=== PATIENT | female | born 1975 | race Caucasian/White ===

== ENCOUNTER 2018-02-05 10:37 | Day surgery (SDC) | payer BC, OTHER ==
[2018-02-05 11:01] VITALS: BMI 34.4
[2018-02-05 11:42] LABS: BASO % 1.4 % (0-2.0); EOS % 1.3 % (0-4.5); HEMATOCRIT 41.7 % (32.4-45.2); HEMOGLOBIN 13.6 GM/dl (10.7-15.3); LYMPH % 30.1 % (8-40); MCH 28.6 pg (25.7-33.7); MCHC 32.7 g/dl (32.0-36.0); MEAN CELL VOLUME 87.3 fl (80-96); MEAN PLT VOLUME 8.5 fl (7.5-11.1); MONO % 3.9 % (3.8-10.2); NEUT % 63.3 % (42.8-82.8); PLATELET COUNT 325 K/MM3 (134-434); RBC 4.77 M/mm3 (3.60-5.2); RDW 12.9 % (11.6-15.6); WHITE BLOOD COUNT 7.7 K/mm3 (4.0-10.8)
[2018-02-05] MEDS ORDERED: LACTATED RINGERS SOLUTION 1,000 ML/1,000 ML INFUS.BAG IV SCH (11:45)
[2018-02-05 11:46] LABS: INR 1.08 (0.82-1.09); PROTHROMBIN TIME (PATIENT) 12.1 SEC (10.2-13.0)
[2018-02-05 11:50] LABS: ALBUMIN 3.9 g/dl (3.5-5.0); ALK PHOS 64 U/L (32-92); BILIRUBIN,TOTAL 0.7 mg/dl (0.2-1.0); BLOOD UREA NITROGEN 13 mg/dl (7-18); CREATININE 0.7 mg/dl (0.6-1.3); SGOT/AST 30 U/L (10-42); SGPT/ALT 38 U/L (10-40); TOT PROT 6.9 g/dl (6.4-8.3)
[2018-02-05 11:57] LABS: ANION GAP 10 MMOL/L (8-16); CALCIUM 9.2 mg/dl (8.4-10.2); CHLORIDE 106 mmol/L (98-107); CO2 21 mmol/L (22-28); GLUCOSE,RANDOM 115 mg/dl (74-106); POTASSIUM 4.1 mmol/L (3.5-5.1); SODIUM 137 mmol/L (136-145)
--- NOTE | 2018-02-05 11:57 | PDOC ---
Attending Attestation - Resident Resident Name: Davey Lovell - ED Attending Attestation I have performed the following: I have examined & evaluated the patient, The case was reviewed & discussed with the resident, I agree w/resident's findings & plan, Exceptions are as noted - HPI HPI: 02/05/18 11:51 42 F with h/o lapband surgery 2 years ago presenting with 1 month of epigastric pain and vomiting. Pt reports pain immediately after eating, often accompanied by vomiting. Denies any abdominal distention. Denies constipation. Denies F/C. Pt denies lower abdominal pain. Spoke with Dr. Alexander's staff, who recommended she come to ER. - Physicial Exam PE: 02/05/18 11:57 GENERAL: Awake, alert, and fully oriented, in no acute distress. HEAD: No signs of trauma EYES: PERRLA, EOMI, sclera anicteric, conjunctiva clear ENT: Auricles normal inspection, hearing grossly normal, nares patent, oropharynx clear without exudates. Moist mucosa NECK: Nontender, no stepoffs, Normal ROM, supple, no lymphadenopathy, JVD, or masses LUNGS: Breath sounds equal, clear to auscultation bilaterally. No wheezes, and no crackles HEART: Regular rate and rhythm, normal S1 and S2, no murmurs, rubs or gallops ABDOMEN: + epigastric TTP, no distention, normoactive bowel sounds. No guarding , no rebound. No masses EXTREMITIES: Normal range of motion, no edema. No clubbing or cyanosis. No cords, erythema, or tenderness NEUROLOGICAL: Cranial nerves II through XII intact. 5/5 strength and sensation in all extremities, Normal speech, normal gait, normal cerebellar function SKIN: Warm, Dry, normal turgor, no rashes or lesions noted. - Medical Decision Making 02/05/18 11:57 42 F with epigastric pain + vomiting after eating. Likely related to lap-band. - Labs - Surgery consult - Dr. Alexander Pt admitted to Dr. Alexander, for OR today.
--- NOTE | 2018-02-05 12:00 | PDOC ---
History of Present Illness - General Chief Complaint: Nausea/Vomiting Stated Complaint: LAP BAND PROBLEM NAUSEA VOMITING Time Seen by Provider: 02/05/18 10:40 History Source: Patient Exam Limitations: No Limitations - History of Present Illness Initial Comments: 02/05/18 11:42 The patient is a 42F s/p gastric band 2 years ago who presents to the ER with abdominal pain sent by Dr. Alexander, her bariatric surgeon. The patient states that she's had dull, intermittent epigastric pain for the past 1 month. The pain is much worse after foods. She states that her band has moved twice despite adjustments and she spoke to Dr. Alexander and will have it removed. She denies current abdominal pain, fever, chills, CP, SOB, nausea, vomiting, and diarrhea. LBM is yesterday. LMP 4 days ago. Past History - Past Medical History Allergies/Adverse Reactions: Allergies Allergy/AdvReac Type Severity Reaction Status Date / Time No Known Allergies Allergy Unverified 02/05/18 10:45 Home Medications: Ambulatory Orders Metformin HCl [Glucophage] 1,000 mg PO BID 02/05/18 COPD: No Dementia: Yes - Surgical History Gastric Stapling: Yes (LAB BAND) - Suicide/Smoking/Psychosocial Hx Smoking History: Current every day smoker Have you smoked in the past 12 months: Yes Number of Cigarettes Smoked Daily: 5 Information on smoking cessation initiated: Yes 'Breaking Loose' booklet given: 02/05/18 Hx Alcohol Use: Yes (SOCIAL) Drug/Substance Use Hx: No Substance Use Type: Alcohol Review of Systems - Review of Systems Able to Perform ROS?: Yes Comments:: 02/05/18 12:00 GENERAL/CONSTITUTIONAL: No fever or chills. No weakness. HEAD, EYES, EARS, NOSE AND THROAT: No change in vision. No ear pain or discharge. No sore throat. CARDIOVASCULAR: No chest pain, palpitations, or lightheadedness. RESPIRATORY: No cough, wheezing, shortness of breath, or hemoptysis. GASTROINTESTINAL: Positive for resolved nausea, vomiting, and abdominal pain - none currently present. GENITOURINARY: No dysuria, frequency, hematuria, or change in urination. MUSCULOSKELETAL: No joint or muscle swelling or pain. No neck or back pain. SKIN: No rash or lesions. NEUROLOGIC: No headache, numbness, tingling, focal weakness, loss of consciousness, or change in strength/sensation. ENDOCRINE: No increased thirst. No abnormal weight change. HEMATOLOGIC/LYMPHATIC: No anemia, easy bleeding, or history of blood clots. ALLERGIC/IMMUNOLOGIC: No hives or skin allergy. Is the patient limited Kiswahili proficient: No *Physical Exam - Vital Signs Last Vital Signs Temp Pulse Resp BP Pulse Ox 98.7 F 73 16 122/96 100 02/05/18 10:40 02/05/18 10:40 02/05/18 10:40 02/05/18 10:40 02/05/18 10:40 - Physical Exam Comments: 02/05/18 12:04 GENERAL: Well developed, well nourished. Awake and alert. No acute distress. HEENT: Normocephalic, atraumatic. Hearing grossly normal. Moist mucous membranes. PERRLA, EOMI. No conjunctival pallor. Sclera are non-icteric. NECK: Supple. Full ROM. No JVD. CARDIOVASCULAR: Regular rate and rhythm. No murmurs, rubs, or gallops. Distal pulses are 2+ and symmetric. PULMONARY: No evidence of respiratory distress. Lungs clear to auscultation bilaterally. No wheezing, rales or rhonchi. ABDOMINAL: Soft. Non-tender. Non-distended. No rebound or guarding. GENITOURINARY: No CVA tenderness bilaterally. MUSCULOSKELETAL: Normal range of motion at all joints. No bony deformities or tenderness. EXTREMITIES: No cyanosis. No clubbing. No edema. No calf tenderness or swelling. SKIN: Warm and dry. Normal capillary refill. No rashes. No jaundice. NEUROLOGICAL: Alert, awake, appropriate. Cranial nerves 2-12 grossly intact. Normal speech. Gait is normal without ataxia. PSYCHIATRIC: Cooperative. Good eye contact. Appropriate mood and affect. ED Treatment Course - LABORATORY CBC & Chemistry Diagram: 02/05/18 11:15 02/05/18 11:15 Medical Decision Making - Medical Decision Making 02/05/18 12:04 The patient is a 42F with a PMH of gastric band who presents to the ER on her surgeon's recommendation for removal of the gastric band. The patient has no current complaints. Pending labs. I have d/w Dr. Alexander who would like the pt pre-opped with labs and EKG. He wants the CT cancelled. Will place orders. Pending call back to confirm admission vs transfer. *DC/Admit/Observation/Transfer Diagnosis at time of Disposition: Abdominal pain Qualifiers: Abdominal location: epigastric Qualified Code(s): R10.13 - Epigastric pain - Discharge Dispostion Condition at time of disposition: Guarded Decision to Admit order: Yes - Referrals - Patient Instructions - Post Discharge Activity
[2018-02-05 13:46] LABS: LIPASE 194 U/L (73-393)
[2018-02-05] MEDS ORDERED: fentaNYL CITRATE 250 MCG/5 ML VIAL ONE (14:02)
[2018-02-05] MEDS ORDERED: BUPIVACAINE HCL/PF 2.5 MG/ML - 30 ML VIAL IJ ONE (14:02)
[2018-02-05] MEDS ORDERED: ROCURONIUM BROMIDE 50 MG/5 ML VIAL ONE (14:02)
[2018-02-05] MEDS ORDERED: PROPOFOL 20 ML ONE ×2 (14:02)
[2018-02-05] MEDS ORDERED: MIDAZOLAM HCL 2 MG/2 ML SINGLE DOSE VIAL ONE (14:02)
[2018-02-05] MEDS ORDERED: PROMETHAZINE HCL 25 MG/1 ML VIAL IVPUSH PRN (14:57)
[2018-02-05] MEDS ORDERED: ONDANSETRON 4 MG/2 ML VIAL IVPUSH PRN ×2 (14:57→16:07)
[2018-02-05] MEDS ORDERED: oxyCODONE HCL 5 MG TABLET PO PRN ×4 (14:57→16:11)
[2018-02-05] MEDS ORDERED: BUPIVACAINE HCL/PF 0.25% (2.5MG/ML) 10 ML VIAL IJ ONE ×2 (15:04→15:40)
[2018-02-05] MEDS ORDERED: NEOSTIGMINE METHYLSULFATE 0.5 MG/ML - 10 ML MDV ONE (15:40)
--- NOTE | 2018-02-05 16:06 | OP ---
Operative Note - Note: Operative Date: 02/05/18 Pre-Operative Diagnosis: Epigastric Abdominal Pain. Vomiting. GE Reflux Disease. Mechanical Complication of Implantable Device Secondary to Gastric Band. AbdominalAdhesions. Fibrous Capsule around Stomach Operation: Laparoscopic Removal of Gastric Band plus subcutaneous port component. Laparoscopic Lysisi of Adhesions. Excision of fibrous capsule around stomach. Diagnostic Laparoscopy Findings: Fibrous capsule around upper stomach thick and constricting Post-Operative Diagnosis: Same as Pre-op (Abdominal Adhesions; Fibrous capsule around stomach) Surgeon: Danny Alexander Data Programmer: Zainab Mccullough Anesthesia: General Specimens Removed: Gastric Band plus subcutaneous port Estimated Blood Loss (mls): 30 Operative Report Dictated: Yes
[2018-02-05] MEDS ORDERED: TRIMETHOBENZAMIDE HCL 200MG/2ML INJ IM PRN (16:07)
--- NOTE | 2018-02-05 16:11 | SURG ---
Surgery Job Press Feeder Note Job Press Feeder: Zainab Mccullough PA-C Date of Service: 02/05/18 Diagnosis: Epigastric Abdominal Pain. Vomiting. GE Reflux Disease. Mechanical Complication of Implantable Device Secondary to Gastric Band. AbdominalAdhesions. Fibrous Capsule around Stomach Procedure: Laparoscopic Removal of Gastric Band plus subcutaneous port component. Laparoscopic Lysisi of Adhesions. Excision of fibrous capsule around stomach. Diagnostic Laparoscopy I was present for the entirety of the operative procedure. For further detail, please refer to operative report. Visit type - Case Type Case Type: ED Admission - Emergency Emergency Visit: Yes Care time: The patient presented to the Emergency Department on the above date and was hospitalized for further evaluation of their emergent condition. - New patient This patient is new to me today: Yes Date on this admission: 02/05/18
[2018-02-05] MEDS ORDERED: SODIUM CHLORIDE 1,000 ML IV SCH (16:45)
[2018-02-05] MEDS ORDERED: FAMOTIDINE 20 MG PREMIXED IVPB IVPB ONE (17:00)
[2018-02-05] MEDS ORDERED: FAMOTIDINE 20 MG/50 ML IVPB 20 MG/50 ML MG IVPB ONE (17:03)
[2018-02-05 17:38] VITALS: TEMP 97.8
[2018-02-05] MEDS ORDERED: oxyCODONE HCL 5 MG TABLET ONE (17:54)
[2018-02-05 18:16] VITALS: BP 130/80; PULSE 78
[2018-02-05] MEDS ORDERED: FAMOTIDINE 20 MG/50 ML IVPB 20 MG/50 ML MG IVPB SCH (22:00)
--- NOTE | 2018-02-06 09:52 | OP ---
DATE OF OPERATION: 02/05/2018 PREOPERATIVE DIAGNOSIS: 1. Epigastric pain. 2. Vomiting. 3. Gastroesophageal reflux disease. 4. Mechanical complication of implantable device secondary to gastric band. 5. Diabetes mellitus. POSTOPERATIVE DIAGNOSIS: 1. Epigastric abdominal pain. 2. Vomiting. 3. Gastroesophageal reflux disease. 4. Mechanical complication of implantable device secondary to gastric band. 5. Diabetes mellitus. 6. Abdominal adhesions. 7. Fibrous capsule around the stomach. PROCEDURE PERFORMED: 1. Laparoscopic removal of gastric band plus subcutaneous port component. 2. Laparoscopic lysis of adhesions. 3. Excision of fibrous capsule around the stomach. 4. Diagnostic laparoscopy. OPERATING SURGEON: Danny Alexander MD [employer] HE[employer] SAF[employer]Y INTERN: PAU Chery ANESTHESIA: General. EXPECTED BLOOD LOSS: 30 mL. OPERATIVE PROCEDURE: The patient was brought into the operating room, placed on the OR table in the supine position. All precautions were taken initially including padding for the back and the feet, and Venodyne boots were placed on both lower extremities. At that point, the abdomen was prepped and draped in the usual manner. A Veress needle was placed in the left upper quadrant, and a pneumoperitoneum was established. A No. 12 bladeless trocar was placed in the left upper quadrant. Through that trocar, a laparoscopic camera was placed. Under direct vision, a No. 15 bladeless trocar was placed in the right upper quadrant along with a No. 5 bladeless trocar in the right upper quadrant more laterally. This was followed by a No. bladeless trocar below the left costal margin. A Vinh Liver Retractor was then placed in the epigastrium to retract the left lobe of the liver. The patient was then placed in a 20-degree reverse Trendelenburg position by Anesthesia. The band tubing was noted in the left upper quadrant, and it was followed toward where the band was around the stomach. There were some adhesions between the omentum and the left lobe of the liver, and these were lysed with a combination of blunt dissection and also with electrocautery. There were also adhesions of the tubing to the liver, and these also were lysed in similar fashion. At this point, attention was directed to the band. With the anesthesiologist assistant surgeon retracting the band tubing towards the patients left side, the operating surgeon used electrocautery to dissect the fibrous capsule off the band on the lesser curvature. This continued laterally, until the entire fibrous capsule was removed, and the band on the lesser curvature was now in full view and easily mobilized. At this junction, the operating surgeon grasped the band tubing and pulled it towards the patients right side. The anesthesiologist assistant surgeon then retracted the stomach inferiorly. Electrocautery was now used to dissect the fibrous capsule off of the band on the greater curvature side, and this was done until the entire band was in full view. The band was then opened with 2 laparoscopic instruments, and the tubing was cut at the takeoff to the subcutaneous port. The band tubing was then removed from around the band, and the band was pulled from around the stomach and sent off the field in one specimen to Pathology. Attention was now directed to the fibrous capsule around the stomach. With the operating and anesthesiologist assistant surgeons lifting it up on both sides, the operating surgeon was able to gently dissect the fibrous capsule with the laparoscopic scissors off the stomach wall. This continued inferior up to superior direction until it completely split in half. Both pieces on the left and right side of the stomach wall were then peeled back so that the anterior stomach wall was now in full view and free of all fibrous capsule. At this juncture, attention was directed to No. 15 and 12 trocar sites. They were closed with endo-closure device to prevent internal hernia event bleeding. At this point, under direct vision, all trocars were removed and pneumoperitoneum was released. The right upper quadrant port site was extended laterally with the scalpel and dissected with continuous electrocautery to the port on the subcutaneous tissue on the right anterior rectus muscle. The port was then lifted up off the right anterior rectus muscle, sent off the field as specimen to Pathology. All Vicryl sutures in the right anterior rectus muscle were removed, and then, all trocar sites received 0.25% Marcaine. The right upper quadrant port site was first closed with 3-0 Vicryl in the subcutaneous tissue, and then, all the trocars were closed with 4-0 Biosyn in subcuticular fashion. Dressings were applied. The patient was then awoken from anesthesia and transferred out of the operating room to the recovery room in stable condition. Elinor [id number]
--- NOTE | 2018-02-07 22:26 | EKG ---
Test Reason : Blood Pressure : / mmHG Vent. Rate : 063 BPM Atrial Rate : 063 BPM P-R Int : 106 ms QRS Dur : 082 ms QT Int : 430 ms P-R-T Axes : 026 048 033 degrees QTc Int : 440 ms SINUS RHYTHM WITH SHORT NH OTHERWISE NORMAL ECG WHEN COMPARED WITH ECG OF 16-JUL-2015 10:12, T WAVE INVERSION NO LONGER EVIDENT IN ANTERIOR LEADS Confirmed by CASE EDWARD MD ([id number]) on 02/07/2018 10:25:32 PM Referred By: MD LITTLE Confirmed By:CASE EDWARD MD
--- NOTE | 2018-02-09 17:11 | PATH ---
Surgical Pathology Report Patient Name: PAO VASQEUZ Med. Rec. #: [id number] /Age/Gender: 1975 (Age: 42) / F Account: [id number] Location: [facility] AMBULATORY Taken: 02/05/2018 Received: 02/05/2018 Reported: 02/09/2018 Physicians: Danny Alexander M.D. Specimen(s) Received A: OLD GASTRIC BAND & PORT B: FIBROUS CAPSULE Clinical History Abdominal pain due to slippage of lap band Final Diagnosis A. OLD GASTRIC BAND AND PORT, REMOVAL: GASTRIC BAND AND PORT. MACROSCOPIC DIAGNOSIS. B. FIBROUS CAPSULE, EXCISION: CONSISTENT WITH FIBROUS CAPSULE. Electronically Signed Mishel Robertson M.D. Gross Description A. Received fresh labeled "old gastric band and port," is a 5 cm in diameter focally disrupted gastric displays a with a 35 cm in length attached portion of tubing. Also received within the same container is a 3 cm in diameter x 1.4 cm in depth white, circular device, consistent with a port. The port displays an 18 cm in length portion of tubing extending from one aspect. No soft tissue is present. No sections are submitted, gross only. B. Received in formalin labeled "fibrous capsule," is a 1.1 x 0.6 x 0.1 cm wei portion of fibrous tissue. The specimen is bisected and entirely submitted in one cassette. 02/08/2018 saudi02/08/2018
== END 2018-02-05 18:15 | disposition home or self-care (01) ==
LOC: FER 10:37 → FASU 13:26
PROVIDERS: ATTEND Surgery
PROC: 0DN64ZZ Release Stomach, Percutaneous Endoscopic Approach (ICD-10-PCS; 2018-02-05)
PROC: 0DP64CZ Removal of Extraluminal Device from Stomach, Percutaneous Endoscopic Approach (ICD-10-PCS; principal; 2018-02-05 14:15)
DX: T85.518A Breakdown (mechanical) of other gastrointestinal prosthetic devices, implants and grafts, initial encounter (principal); K95.09 Other complications of gastric band procedure; R10.13 Epigastric pain; R11.10 Vomiting, unspecified; K21.9 Gastro-esophageal reflux disease without esophagitis; E11.9 Type 2 diabetes mellitus without complications; K31.89 Other diseases of stomach and duodenum; Y93.89 Activity, other specified; Y92.89 Other specified places as the place of occurrence of the external cause
CPT/HCPCS: 36415; 80053; 82962; 83690; 84703; 85025; 85610; 86850; 86900; 86901; 88300-TC; 88304-TC; 93005; 94760; 99282-25